=== PATIENT | male | born 1995 | race American Indian/Alaskan Native ===

== ENCOUNTER 2017-05-15 21:02 | Emergency (ER) | payer OTHER ==
[2017-05-15 21:16] VITALS: BP 134/72; PULSE 84; BMI 20.3
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
[2017-05-15] MEDS ORDERED: DIPHTH,PERTUSS(ACELL),TET 0.5 ML DISP.SYRIN IM ONE (21:49)
== END 2017-05-15 22:12 | disposition home or self-care (01) ==
LOC: JERFT 21:02
PROC: 0HQ1XZZ Repair Face Skin, External Approach (ICD-10-PCS; principal; 2017-05-15)
DX: S01.81XA Laceration without foreign body of other part of head, initial encounter (principal); F84.0 Autistic disorder
CPT/HCPCS: 12011; 99281-25

== ENCOUNTER 2017-05-26 09:52 | Emergency (ER) | payer OTHER ==
[2017-05-26 10:04] VITALS: BP 124/69; PULSE 110; TEMP 97; BMI 21.7
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
[2017-05-26] MEDS ORDERED: TETANUS AND DIPHTHERIA TOXOID 0.5 ML DISP.SYRIN IM ONE (10:13)
[2017-05-26] MEDS ORDERED: AMOX TR/POT CLAV 875MG/125MG TABLETS (FP) PO ONE (10:42)
[2017-05-26] MEDS ORDERED: AMOX TR/POT CLAV 875MG/125MG TABLETS (FP) ONE (10:49)
[2017-05-27 16:20] LABS: HEP.C VIRUS AB 0.1 s/co ratio (0.0-0.9)
== END 2017-05-26 11:02 | disposition home or self-care (01) ==
LOC: JERFT 09:52
PROC: 3E0234Z Introduction of Serum, Toxoid and Vaccine into Muscle, Percutaneous Approach (ICD-10-PCS; principal; 2017-05-26)
DX: S30.870A Other superficial bite of lower back and pelvis, initial encounter (principal); W50.3XXA Accidental bite by another person, initial encounter; Y93.89 Activity, other specified; Y92.118 Other place in children's home and orphanage as the place of occurrence of the external cause; Y99.8 Other external cause status
CPT/HCPCS: 36415; 80074; 87389; 90471; 90714; 99281-25

== ENCOUNTER 2018-12-18 21:19 | Emergency (ER) | payer OTHER ==
--- NOTE | 2018-12-18 21:24 | PDOC ---
Rapid Medical Evaluation Time Seen by Provider: 12/18/18 21:21 Medical Evaluation: Allergies Allergy/AdvReac Type Severity Reaction Status Date / Time No Known Allergies Allergy Verified 05/26/17 10:04 12/18/18 21:22 CC: lip laceration PE: right lower lip laceration not through the rochelle border Orders: nothing Patient will proceed to ER for continued evaluation. Discharge Disposition - Diagnosis Laceration - Referrals - Patient Instructions - Post Discharge Activity
[2018-12-18 21:27] VITALS: BP 0/0; BMI 24.4
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
[2018-12-18] MEDS ORDERED: TETANUS AND DIPHTHERIA TOXOID 0.5 ML DISP.SYRIN IM ONE (21:34)
[2018-12-18] MEDS ORDERED: DIPHTH,PERTUSS(ACELL),TET 0.5 ML DISP.SYRIN IM ONE (21:37)
[2018-12-18] MEDS ORDERED: AMOX TR/POT CLAV 875MG/125MG TABLETS (FP) PO ONE (21:40)
[2018-12-18] MEDS ORDERED: AMOX TR/POT CLAV 875MG/125MG TABLETS (FP) ONE (21:42)
== END 2018-12-18 22:11 | disposition home or self-care (01) ==
LOC: JERFT 21:19
DX: S01.511A Laceration without foreign body of lip, initial encounter (principal); Y93.89 Activity, other specified; F98.8 Other specified behavioral and emotional disorders with onset usually occurring in childhood and adolescence; Y92.198 Other place in other specified residential institution as the place of occurrence of the external cause; Y99.8 Other external cause status; Z91.5 Personal history of self-harm; F84.0 Autistic disorder; F39 Unspecified mood [affective] disorder
CPT/HCPCS: 99281-25